=== PATIENT | female | born 1945 | race Caucasian/White ===

== ENCOUNTER 2018-02-18 20:15 | Inpatient (IN) | payer OTHER, MEDICARE ==
--- NOTE | 2018-02-18 20:15 | NUR ---
PT ADMITTED FROM HOME DUE TO SUICIDE IDEATION REFERRED PER DR. BLANCO. PT IS ALERT AND ORIENTED X 3. PT AMBULATES WITHOUT ASSISTANCE. INCONT OG BLADDER AT TIMES. ABLE TO VOICE NEEDS TO STAFF. PT. WEARS GLASSES. CODEWORD IS [facility]. PT IS DNR. HAS ADVANCE DIRECTIVE DAUGHTER SHAMA WILL BRING TOMORROW PER PT. PHARMACY IS [facility]. PCP DR. TAVAREZ. EPISCOPAL IS [facility]. PT IS TYPE 2 DIABETIC. DEL YOUNGER- [phone] DAUGHTER SHAMA NAOMI- POA- [phone].
[2018-02-18] MEDS ORDERED: RANITIDINE HCL150 M1 PO (21:52)
[2018-02-18] MEDS ORDERED: JANUVIA100 MG PO (21:53)
[2018-02-18] MEDS ORDERED: ZOLOFT100 MG PO (21:53)
[2018-02-18] MEDS ORDERED: GLUCOTROL 5 MG T5 MG (22:02)
[2018-02-18] MEDS ORDERED: BAYER CHEWABLE81 MG PO (22:02)
[2018-02-18] MEDS ORDERED: BENADRYL25 MG (22:05)
[2018-02-18] MEDS ORDERED: DEPAKOTE500 MG (22:06)
[2018-02-18] MEDS ORDERED: ZYPREXA2.5 MG (22:07)
[2018-02-18] MEDS ORDERED: TRAZODONE HCL150 MG PO (22:08)
[2018-02-18 22:19] VITALS: BP 157/84
[2018-02-18 23:16] VITALS: BP 157/84
--- NOTE | 2018-02-19 01:30 | NUR ---
PT STATES ANXIETY AND CANT SLEEP. PRN ATIVAN 0.5 MG PO GIVEN FOR ANXIETY
--- NOTE | 2018-02-19 02:24 | NUR ---
RESTING CALMLY IN BED WITH EYES CLOSED AT THIS TIME.
[2018-02-19 07:50] LABS: HEMATOCRIT 44.4 % (36.0-48.0); HEMOGLOBIN 15.1 g/dL (12-16); MCH 31.9 pg (26.0-34.0); MCV 93.9 fL (80.0-100.0); MEAN PLATELET VOLUME 9.9 fL (7.4-10.4); PLATELET COUNT 203 10x3/uL (130-400); RBC 4.73 10x6/uL (4.00-5.40); RDW 13.7 % (11.5-14.5); WBC 10.9 10x3/uL (4.8-10.8)
--- NOTE | 2018-02-19 08:00 | NUR ---
REC'D PT IN HALLWAY WITH PEERS. PT IS ALERT AND ORIENTED X 3. DENIES SUICIDE IDEATIONS AT THIS TIME. PT CALM AND COOPERATIVE WITH ASSESSMENT. PT IS VERY ANXIOUS AT TIMES. PRESCRIBED MEDS PROVIDED. MED COMPLIANT. FALL PRECAUTIONS IN PLACE. WILL COMTINUE TO MONITOR Q 15 MINUTES FOR SAFETY. WILL CPOC.
[2018-02-19 08:22] LABS: ALBUMIN 3.4 g/dL (3.4-5.0); ANION GAP 17.3 mmol/L (8-16); BILIRUBIN - TOTAL 0.37 mg/dL (0.2-1.3); CALCIUM 9.8 mg/dL (8.5-10.1); CARBON DIOXIDE 23.8 mmol/L (21.0-32.0); CHOL - HDL RATIO 3.7 ratio (2.3-4.1); CREATININE - SERUM 0.8 mg/dL (0.6-1.3); LDL-HDL RATIO 2.5 ratio (1.5-3.5); POTASSIUM - SERUM 4.1 mmol/L (3.5-5.1); PROTEIN - SERUM 7.3 g/dL (6.4-8.2); THYROID STIMULATING HORMONE 4.42 uIU/mL (0.36-3.74); VALPROIC ACID (DEPAKOTE) 57.8 ug/mL (50.0-100.0)
[2018-02-19 09:07] VITALS: BP 135/72
[2018-02-19 09:22] LABS: EOSINOPHILS 1 % (0-7); LYMPHOCYTES 39 % (15-50); MONOCYTES 9 % (2-11); NEUTROPHILS 49 % (40-80); PLATELET ESTIMATE NORMAL
[2018-02-19 10:16] VITALS: Wt 76.7 kg
--- NOTE | 2018-02-19 19:56 | NUR ---
RECEIVED IN HALLWAY. WALKING TO HER ROOM AT BEDTIME. CALM AND COOPERATIVE WITH CARE AND ASSESSMENT. NO STATEMENTS MADE OF SELF HARM THIS PM. REDIRECT AND REORIENT NEEDED. RESTING EYES CLOSED AT THIS TIME. CONTINUE PLAN OF CARE
[2018-02-19 23:57] VITALS: BP 130/58
[2018-02-20 07:30] LABS: APPEARANCE HAZY (CLEAR); BILIRUBIN NEGATIVE (NEGATIVE); COLOR YELLOW (YELLOW); GLUCOSE NEGATIVE (NEGATIVE); KETONE NEGATIVE (NEGATIVE); NITRITE NEGATIVE (NEGATIVE); PROTEIN NEGATIVE (NEGATIVE); SPECIFIC GRAVITY 1.015 (1.005-1.020); UROBILINOGEN NORMAL (NORMAL)
[2018-02-20 07:30] LABS: VITAMIN D 25 HYDROXY 17.8 ng/mL (30.0-100.0)
--- NOTE | 2018-02-20 07:30 | NUR ---
REC'D PT IN HALLWAY SITTING IN CHAIR/ ALERT AND ORIENTED X 3. CALM AND COOPERATIVE WITH ASSESSMENT. NO SI NOTED OR VOICED. PRESCRIBED MEDS PROVIDED. MED COMPLIANT. REDIRECT AND REORIENT NEEDED. FALL PRECAUTIONS IN PLACE. WILL CONTINUE TO MONITOR Q 15 MINUTES FOR SAFETY. WILL CPOC.
[2018-02-20 07:31] LABS: BACTERIA FEW /hpf (NONE SEEN); EPITHELIAL CELLS 0-5 /hpf (0-5); MUCUS >1+ /lpf (NONE SEEN); WHITE CELLS - URINE 0-5 /hpf (0-5)
[2018-02-20 08:00] VITALS: BP 147/86
[2018-02-20 08:25] LABS: RAPID PLASMA REAGIN Non Reactive (Non Reactive)
[2018-02-20 11:18] LABS: FOLATE (FOLIC ACID) - SERUM 13.3 ng/mL (>3.0)
--- NOTE | 2018-02-20 14:59 | PSY ---
PATIENT NAME:CONNOR FLANAGAN MEDICAL RECORD: [id number] : 43 LOCATION:NOR[facility] Mauricio1125 ADMISSION DATE: 02/18/18 ACCOUNT: [id number] PSYCHIATRIC EVALUATION DATE OF EVALUATION: 02/19/18 PSYCHIATRIC EVALUATION IDENTIFYING DATA: The patient is 72 years old and she is admitted to the hospital on a voluntary basis. CHIEF COMPLAINT: Suicidal thoughts. HISTORY OF PRESENT ILLNESS: The patient has about a 95-tkly-bmycwaa of bipolar disorder. She now reports to the hospital after being referred by her outpatient psychiatrist. Apparently, she has been significantly impaired and agitated. She, for some reason, has been involved in a major building project at the [employer] she belongs to. Apparently, the project is done by committee and it has not gone well. She is feeling conflict with builder, contractor, her spool hauler, and the other members of the committee. It is her opinion that her is not supportive of her and siding with her in this conflict. She says that she wishes that she could and would actively seek to harm herself if she could. She does not have a plan. She is tearful and endorsing numerous neurovegetative depressive symptoms. PAST MEDICAL HISTORY: Significant for breast cancer, endometrial cancer, gallbladder removal, and diabetes. PAST PSYCHIATRIC HISTORY: Significant for bipolar disorder. This was diagnosed about 15 years ago, around the time she was battling breast cancer. She has been relatively stable since then and has been treated extensively by her outpatient psychiatrist, Dr. Nava. FAMILY HISTORY: Noncontributory. ALLERGIES: LUNESTA. CURRENT MEDICATIONS: Include Januvia, Glucotrol, Zoloft, Pepcid, Desyrel, Zyprexa, and Depakote. SOCIAL HISTORY: The patient has been to the same man for more than 50 years. He apparently works for a gas and [employer] company and travels most of the time. He continues to work even though he is 73 years old. 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 She has 3 children, one of whom is adopted. She has a daughter who lives close to her in [place] and she has regular contact with. She has no history of drug or alcohol abuse, and generally has functioned well both socially and occupationally. MENTAL STATUS EXAMINATION: The patient is awake; alert; and oriented to person, place, time, and situation. Her mood is depressed. Her affect is constricted. She is oriented fully and her appearance is little disorganized. Her eye contact is fair. Thought processes are circumstantial and she has no active hallucinations or delusions. She does endorse suicidal ideation with vague intent and no specific plan she will reveal. She has no homicidal or violent ideations. Her memory, concentration, and abstraction abilities are mildly impaired. ASSETS: Supportive family members. LIABILITIES: Limited insight. DIAGNOSTIC IMPRESSION: AXIS I: Bipolar disorder, depressed. AXIS II: None. AXIS III: Diabetes. AXIS IV: Moderate. AXIS V: Global assessment of functioning is 40. PLAN: At this time, the patient is admitted to the hospital secondary to depressive symptoms with suicidal thoughts. This is in relation to her underlying chronic mental illness. She will be treated with both mood stabilizing and antidepressant medications. Her long-term prognosis is guarded. TRANSINT:[id number] Voice Confirmation ID: [id number] DOCUMENT ID: [id number] ALBERTO LEA MD at 1459 CC: [id number] DICTATION DATE: 02/19/18 1615 LABOR TRAINER: 02/19/18 1651 ADM IN [facility] [address] [place] [address]
--- NOTE | 2018-02-20 17:38 | NUR ---
PT DAUGHTER SHAMA CALLED TO REPORT TO THAT SHE SPOKE WITH REGARDING PT MAKING STATEMENT DURING VISITATION ON SUNDAY " I HAVE A BOOTLE OF PILLS AT HOME, THAT YOU WILL NEVER FIND." DAUGHTER ASKED PT TO LET HER KNOW WHERE THE PILLS ARE LOCATED." " PT STATES I CAN TELL YOU THAT I MAY WANT TO TAKE THEM WHEN I GO HOME." PT DAUGHTER IS CONCERNED IF PT KNOWS SHE TOLD STAFF SHE WILL LOSE HER MOMS TRUST BUT IS VERY CONCERNED BELIEVES HER MOM MAY TAKE PILLS IF NOT FOUND AND PT GOES HOME. THIS NURSE EXPLAINED I WOULD LEAVE A NOTE IN HER CHART AND MAKE SURE DR. LEA IS AWARE.
[2018-02-20 23:37] VITALS: BP 150/80
--- NOTE | 2018-02-21 03:31 | NUR ---
B) REQUESTED TO HAVE HER BLOOD SUGAR TESTED AT BEDTIME, SAME DONE = 117. QUIET, FLAT AFFECT, GUARDED WITH ISSUES, NOT WANTING TO ENGAGE IN CONVERSATION JUST WANTS TO SLEEP. CONTINUES DEPRESSED. SLEEPING WELL. I) MEDICATE ORDERED, ENCOURAGE EXPRESSION OF FEELINGS, ENCOURAGE TO IDENTIFY TRIGGERS TO SUICIDAL THOUGHTS, MAINTAIN SAFETY ON UNIT. R) NO SELF-DISCLOSURES, SULLEN, WITHDRAWN, COMPLIANT WITH MEDICATIONS. P) CONTINUE TO MONITOR PER PLAN OF CARE.
[2018-02-21 07:00] VITALS: BP 158/93
--- NOTE | 2018-02-21 15:55 | PN ---
PATIENT:CONNOR FLANAGAN MEDICAL RECORD: [id number] LOCATION:[facility]VID[facility]ula MauricioJoyce ADMISSION DATE: 02/18/18 PROGRESS NOTE DATE OF SERVICE: 02/20/2018 SUBJECTIVE: The patient's case was discussed with staff. She has no new complaint. OBJECTIVE: The patient denies that she would seek to harm herself. She is resting much better. ASSESSMENT: No change in diagnoses. PLAN: Current medicines and therapies have been reviewed and will be maintained. Long-term prognosis is guarded. TRANSINT:[id number] Voice Confirmation ID: [id number] DOCUMENT ID: [id number] ALBERTO LEA MD at 1555 CC: [id number] DICTATION DATE: 02/20/18 1506 VOCAL PERFORMER: 02/20/18 1722 ADM IN [place] [id number] [place] [address]
[2018-02-21 18:57] VITALS: BP 152/81
--- NOTE | 2018-02-21 20:10 | NUR ---
B) PATIENT ASKED TO MAKE PHONE CALL TO SPEAK TO HER DAUGHTER ABOUT THE OLD RX BOTTLE OF OXYCODONE SHE HAD HIDDEN. STATES SHE IS NOW WILLING TO TELL HER DAUGHTER WHERE THIS BOTTLE IS. ADMITS TO STILL FEELING DEPRESSED BUT DENIES SUICIDAL IDEATION AT THIS TIME. STAYS TO HER SELF, NO CONVERSING WITH PEERS. ALLOWED TO USE TELEPHONE. I) MEDICATE PER ORDERS, ASSESS FOR SUICIDE RISK AND INTENT, MONITOR ON SUICIDE PRECAUTIONS, MAINTAIN SAFETY OF UNIT. OFFER 1:1 TO VERBALIZE FEELINGS, RECOGNIZE TRIGGERS AND WORK ON DEVELOPING COPING SKILLS TO INCREASE SENSE OF SELF WORTH AND DESIRE TO LIVE. R) COMPLIANT WITH MEDICATIONS, DENIES SUICIDE IDEATION AT THIS TIME. ORIENTED X 4, QUIET, SULLEN AND WITHDRAWN. P) MONITOR PER PLAN OF CARE.
--- NOTE | 2018-02-21 22:10 | NUR ---
SHAMA, PATIENT'S DAUGHTER TELEPHONED UNIT. STATES SHE HAS FOUND THE BOTTLE OF OXYCODONE PILLS.
--- NOTE | 2018-02-22 08:00 | NUR ---
Late Entry: The patient had been ambulating in the hallway. She is alert and oriented x3, she is here for depression and SI, with a hx of bipolar. At this time she sat in a chair in the hallway and she fell off of the chair onto the floor. Sat the patient up in the chair and she said "I don't feel so well."
--- NOTE | 2018-02-22 08:05 | NUR ---
Late entry: Vital signs taken blood pressure is 69/56, assessed her eyes and they are fixed. Assessed her hand grasps and she is able to grab, but there is no strength. At 0807 did a manual blood pressure 80/60, called for a rapid response. 0810 rapid response team is here bp 90/56. From the fall there is a noted bruise to her left eyebrow and left cheek. The call is made to take the patient to CT for a head and spine.
--- NOTE | 2018-02-22 08:30 | NUR ---
Late entry: Called the patient's to let him know his fell and was sent to CT, he said "Ok, I will be right there." Text Dr. Schmidt and he text back asking to let him know how everything goes.
--- NOTE | 2018-02-22 08:40 | NUR ---
Late entry: The patient has been taken to CT and from CT she has been admitted to ICU, she is now discharged from [facility], she left via [facility] chair.
--- NOTE | 2018-02-22 16:05 | NUR ---
LATE ENTRY: PT FELL OUT OF HER CHAIR THIS MORNING. PT STATED THAT SHE DID NOT FEEL WELL. VITAL SIGNS TAKEN AND PT'S BLOOD PRESSURE WAS LOW. A MANUAL BLOOD PRESSURE WAS DONE BUT NO CHANGE. DR. JOHNSON NOTIFIED. PT TAKEN TO CT FOR IMAGING. ALL IMAGING WNL. FAMILY NOTIFIED OF FALL. PRIOR TO CT PT WAS VERY LETHARGIC AND UNABLE TO COMPLETE NEURO ASSESSMENT. [facility]ON[facility] CALLED. SEE CHART FOR DOCUMENTATION. PT DISCHARGED TO ICU FOR FURTHER EVALUATION. FAMILY NOTIFIED. DR. LEA CALLED AND INFORMED OF DISCHARGE.
--- NOTE | 2018-02-22 16:27 | PN ---
PATIENT:CONNOR FLANAGAN MEDICAL RECORD: [id number] LOCATION:[facility]uyita[facility]UBEN[facility]ula Mauricio112 ADMISSION DATE: 02/18/18 PROGRESS NOTE DATE OF SERVICE: 02/21/2018 SUBJECTIVE: The patient's case was discussed with staff. She has no new complaint. OBJECTIVE: The patient denies intent to harm herself or others. She generally is tolerating her medicines well. She is sleeping better, but continues to believe that her situation is fairly hopeless with regards to the problems she is having with the contractor. ASSESSMENT: No change in diagnoses. PLAN: I am going to increase her Zoloft slightly. She will be monitored for clinical changes associated with its use. Her long-term prognosis is guarded. TRANSINT:[id number] Voice Confirmation ID: [id number] DOCUMENT ID: [id number] ALBERTO LEA MD at 1627 CC: [id number] DICTATION DATE: 02/21/18 1615 OTR REFRIGERATED CDL TRUCK DRIVER: 02/21/18 2212 DIS IN 02/22/18 [place] [address] [place] [address]
== END 2018-02-22 08:40 | disposition short-term general hospital (02) | DRG 885 ==
LOC: D.PSYCH 20:15
PROVIDERS: ADMIT Psychiatry & Neurology Psychiatry
DX: F31.30 Bipolar disorder, current episode depressed, mild or moderate severity, unspecified (principal); R45.851 Suicidal ideations; K21.9 Gastro-esophageal reflux disease without esophagitis; E11.9 Type 2 diabetes mellitus without complications; E66.3 Overweight; I10 Essential (primary) hypertension; E55.9 Vitamin D deficiency, unspecified; W07.XXXA Fall from chair, initial encounter; S09.90XA Unspecified injury of head, initial encounter

== ENCOUNTER 2018-02-22 10:16 | Inpatient (IN) | payer OTHER, MEDICARE ==
[~2018-02-22] VITALS: Ht 160 cm; Wt 82.0 kg
[2018-02-22] VITALS (18 sets, daily range): BP systolic 63–135; BP diastolic 27–93
[~2018-02-22 10:16] MED LIST: BAYER CHEWABLE81 MG PO; BENADRYL25 MG; DEPAKOTE500 MG; GLUCOTROL 5 MG T5 MG; JANUVIA100 MG PO; RANITIDINE HCL150 M1 PO; TRAZODONE HCL150 MG PO; ZOLOFT100 MG PO; ZYPREXA2.5 MG
--- NOTE | 2018-02-22 14:53 | NUR ---
0850 ARRIVED VIA BED FROM [facility] ADMIT AND ASSESSMENT COMPLETE GOOD HISTORIAN
--- NOTE | 2018-02-22 14:58 | NUR ---
1045 SPOUSE AT BEDSIDE EMOTIONAL SUPPORT PROVIDED
--- NOTE | 2018-02-22 14:58 | NUR ---
1200 RN FROM [facility] AT BEDSIDE GIVING DESCRIPTION OF WHAT HAPPENED THIS AM. PT HAD REPORTED DIZZYNESS AND HAD A FALL ON THEIR UNIT [facility] CALLED AND TRANSPORTED PATIENT TO ICU 9620
[2018-02-22 17:39] LABS: ALBUMIN 3.5 g/dL (3.4-5.0); ANION GAP 15.6 mmol/L (8-16); BILIRUBIN - TOTAL 0.31 mg/dL (0.2-1.3); CALCIUM 9.4 mg/dL (8.5-10.1); CARBON DIOXIDE 25.8 mmol/L (21.0-32.0); CREATININE - SERUM 1.1 mg/dL (0.6-1.3); POTASSIUM - SERUM 4.4 mmol/L (3.5-5.1); PROTEIN - SERUM 6.8 g/dL (6.4-8.2)
[2018-02-22 17:42] LABS: BASOPHILS 0.3 % (0-2); EOSINOPHILS 0.5 % (0-7); HEMOGLOBIN 14.9 g/dL (12-16); IMMATURE GRANULOCYTES 0.8 % (0-5); LYMPHOCYTES 42.3 % (15-50); MCHC 33.1 g/dL (31.0-37.0); MCV 96.6 fL (80.0-100.0); MEAN PLATELET VOLUME 10.4 fL (7.4-10.4); MONOCYTES 9.5 % (2-11); NEUTROPHILS 46.6 % (40-80); PLATELET COUNT 208 10x3/uL (130-400); RBC 4.66 10x6/uL (4.00-5.40); RDW 13.6 % (11.5-14.5); WBC 15.3 10x3/uL (4.8-10.8)
[2018-02-22 18:32] LABS: CKMB 2.8 U/L (0.0-3.6); CREATINE KINASE 161 UL (21-215)
[2018-02-22 18:35] LABS: TROPONIN-I < 0.017 ng/mL (0.000-0.060)
--- NOTE | 2018-02-22 19:00 | NUR ---
SHIFT ASSESSMENT COMPLETE. BP 63/27 MAP 43, 500 CC NS BOLUS INFUSING. NEW ORDERS RECIEVED VIA DAY SHIFT RN. REPOSITIONED. AT BEDSIDE. RR EVEN AND UNLABORED, HR 105 SINUS TACH. SCDS ON AND FUNCTIONING. SHE STATES THAT SHE IS IN SOME PAIN AT THIS TIME, BUT DOES NOT WANT ANY MEDICATION. HEAT PACK ON NECK. NO FURTHER NEEDS AT THIS TIME. WILL CONT TO MONITOR CLOSELY.
--- NOTE | 2018-02-22 21:10 | NUR ---
FSBS 96. NO INSULIN ADMINISTERED. AT BEDSIDE. PT RESTING PEACEFULLY. BP REMAINS ON THE LOWER RANGE OF NORMAL. WILL CONT TO MONITOR CLOSELY.
--- NOTE | 2018-02-22 21:49 | NUR ---
1530 IV STARTED TO LEFT HAND WITH 20G NEEDLE NS 500ML BOLUS STARTED
--- NOTE | 2018-02-22 21:49 | NUR ---
1400 [facility] 99
--- NOTE | 2018-02-22 21:50 | NUR ---
5103 CHEMISTRY GLUCOSE 133 DILAUDID 1MG GIVEN IV PER ORDER
--- NOTE | 2018-02-22 21:52 | NUR ---
1705 PATIENT WITH CYANOSIS O2 SAT DROPPING BEGAN BAGGING PATIENT NARCAN GIVEN IV PATIENT BAGAN WAKING UP PLACED ON NC 3L FAMILY RERMAINS AT BEDSIDE TURNED PT TO SIDE BECAUSE C/O NAUSEA. PT HAD NO EMESIS NOTED
--- NOTE | 2018-02-22 21:56 | NUR ---
1800 COOL CLOTH APPLIED TO FOREHEAD FOR COMFORT WARM PACK APPLIED TO BACK OF NECK FOR C/O OF PAIN PAISTEPHANIE WENT TO SLEEP WITH DAUGHTER AT BEDSIDE
--- NOTE | 2018-02-22 23:00 | NUR ---
REASSESSMENT COMPLETE. COMPLETE LINEN CHANGE. DAUGHTER AT BEDSIDE. PT TOLERATED WELL, APPROX 400 ML CLEAR YELLOW URINE NOTED. VSS. REPOSITIONED FOR COMFORT. WILL CONT WITH POC.
[2018-02-23] VITALS (24 sets, daily range): BP systolic 87–164; BP diastolic 47–92
--- NOTE | 2018-02-23 | NUR ---
FSBS 117. WILL CONT TO MONITOR CLOSELY.
--- NOTE | 2018-02-23 01:00 | NUR ---
PT RESTING PEACEFULLY WITH NO SIGNS OF ACUTE DISTRESS NOTED. VSS. WILL CONT WITH POC.
--- NOTE | 2018-02-23 03:00 | NUR ---
REASSESSMENT COMPLETE. PARTIAL LINEN CHANGE PROVIDED. NO CHANGES IN PT CONDITION. VSS. REPOSITIONED FOR COMFORT.
--- NOTE | 2018-02-23 04:30 | NUR ---
PT STATES THAT SHE HAS 8/10 PAIN AND IS REQUESTING TYLENOL. MED ADMINISTERED. SNACK PROVIDED. WILL CONT TO MONITIOR.
--- NOTE | 2018-02-23 05:00 | NUR ---
PT RESTING PEACEFULLY WITH NO S/S OF PAIN OR DISCOMFORT. VSS.
[2018-02-23 10:46] LABS: BASOPHILS 0.2 % (0-2); EOSINOPHILS 0.3 % (0-7); HEMOGLOBIN 12.3 g/dL (12-16); IMMATURE GRANULOCYTES 0.6 % (0-5); LYMPHOCYTES 37.6 % (15-50); MCH 31.5 pg (26.0-34.0); MCHC 32.4 g/dL (31.0-37.0); MCV 97.2 fL (80.0-100.0); MEAN PLATELET VOLUME 9.5 fL (7.4-10.4); MONOCYTES 12.1 % (2-11); NEUTROPHILS 49.2 % (40-80); PLATELET COUNT 169 10x3/uL (130-400); RBC 3.91 10x6/uL (4.00-5.40); RDW 14.1 % (11.5-14.5)
[2018-02-23 10:56] LABS: WBC 10.7 10x3/uL (4.8-10.8)
[2018-02-23 12:22] LABS: ANION GAP 14.4 mmol/L (8-16); BILIRUBIN - TOTAL 0.39 mg/dL (0.2-1.3); CALCIUM 7.9 mg/dL (8.5-10.1); CARBON DIOXIDE 19.9 mmol/L (21.0-32.0); CREATININE - SERUM 1.3 mg/dL (0.6-1.3); POTASSIUM - SERUM 4.3 mmol/L (3.5-5.1); PROTEIN - SERUM 5.8 g/dL (6.4-8.2)
[2018-02-23 12:23] LABS: ALBUMIN 2.4 g/dL (3.4-5.0)
--- NOTE | 2018-02-23 12:54 | NUR ---
PLACED PT ON BED [place] - CPOC
--- NOTE | 2018-02-23 13:00 | NUR ---
REMOVED BED [place] - PT OUT PUT 250 YELLOW URINE - INFORMED PT THE NEED TO PLACE [place]OS - PT VERBALIZED UNDERSTANDING CPOC
--- NOTE | 2018-02-23 13:30 | NUR ---
ADMINISTERED CEVALLOS PER ORDER - CPOC
--- NOTE | 2018-02-23 15:00 | NUR ---
ASSESSMENT COMPLETE - PATIENT ASKED FOR PRUNE JUICE FOR CONSTIPATION - CPOC
--- NOTE | 2018-02-23 18:00 | NUR ---
DR. JOHNSON AT BEDSIDE FOR ASSESMENT - ORDRED TOPICAL PAIN OINTMENT - CPOC
--- NOTE | 2018-02-23 19:09 | NUR ---
PLACED PT ON BED [place] - PT HAS LARGE SEMIFORMED B.M. - PT RESTING IN BED VVS CPOC
--- NOTE | 2018-02-23 19:30 | NUR ---
SHIFT ASSESSMENT COMPLETE, PER NURSING FLOWSHEET, VSS, NO NEEDS VOICED OR NOTED AT THIS TIME
--- NOTE | 2018-02-23 21:00 | NUR ---
PATIENT REPOSITIONED, DAUGHTER AND AT BEDSIDE, UPDATE GIVEN, QUESTIONS ANSWERED
--- NOTE | 2018-02-23 23:00 | NUR ---
RE-ASSESSMENT COMPLETE PER NURSING FLOWSHEET, PATIENT REPOSITIONED, DAUGHTER GOING HOME TONIGHT, PATIENT ORIENTATION HAS IMPROVED. WILL CONTINUE TO MONITOR
[2018-02-24] VITALS (24 sets, daily range): BP systolic 108–182; BP diastolic 51–95
--- NOTE | 2018-02-24 01:00 | NUR ---
PATIENT REPOSITIONED, CEVALLOS CARE PROVIDED, EASILY FALLS BACK TO SLEEP, CONTINUE POC
--- NOTE | 2018-02-24 03:00 | NUR ---
RE-ASSESSMENT COMPLETE, PER NURSING FLOWSHEET. PATIENT REPOSITIONED, C/L IN REACH
--- NOTE | 2018-02-24 05:00 | NUR ---
PATIENT SLEEPING, VSS, NO DISTRESS NOTED, WILL CONTINUE TO MONITOR
[2018-02-24 06:54] LABS: ALBUMIN 2.6 g/dL (3.4-5.0); BILIRUBIN - TOTAL 0.12 mg/dL (0.2-1.3); CALCIUM 8.8 mg/dL (8.5-10.1); CARBON DIOXIDE 24.7 mmol/L (21.0-32.0); PROTEIN - SERUM 5.8 g/dL (6.4-8.2)
[2018-02-24 06:56] LABS: ANION GAP 13.3 mmol/L (8-16); CREATININE - SERUM 0.9 mg/dL (0.6-1.3)
--- NOTE | 2018-02-24 08:08 | NUR ---
0700 AWAKW ALERT ANSWERS QUESTIONS APPROPRIATLY FOLLOWS INSTRUCTION
--- NOTE | 2018-02-24 09:38 | NUR ---
0900 CONSUMED 80% BREAKFAST DENIES NAUSEA
--- NOTE | 2018-02-24 12:26 | NUR ---
1225 IV LEAKING TIGHTENED CONNECTOR REMAINS PATENT
--- NOTE | 2018-02-24 19:30 | NUR ---
REPORT RECEIVED, SHIFT ASSESSMENT COMPLETED PER FLOW SHEET, PT AAOx4 IN NO DISTRESS, DENIES PAIN AT THIS TIME, CEVALLOS PATENT TO GRAVITY, ABLE TO REPOSITION SELF, MOVES ALL EXTREMITIES WITH PURPOSE, VSS, WILL CONTINUE TO ASSESS
--- NOTE | 2018-02-24 20:00 | NUR ---
REMOVED IV FROM LT HAND, CATH TIP INTACT, NO S/S OF DISTRESS NOTED, PT FAMILY AT BEDSIDE, VSS, WILL CONTINUE TO ASSESS
--- NOTE | 2018-02-24 20:05 | NUR ---
1415 RESTING QUIETLY FAMILY MEMBERS AT BEDSIDE
--- NOTE | 2018-02-24 20:05 | NUR ---
1600 ACCU CHECK 143 NO INSULIN GIVEN PER SLIDING SCALE
--- NOTE | 2018-02-24 20:06 | NUR ---
1515 DR YING AT BEDSIDE WITH UPDATED FOR PATIENT AND FAMILY.
--- NOTE | 2018-02-24 20:07 | NUR ---
1700 POOR APPETITE REFUSES TO EAT DINNER
--- NOTE | 2018-02-24 23:00 | NUR ---
REASSESSMENT COMPLETED PER FLOW SHEET, PT RESTING IN BED COMFORTABLY, DENIES PAIN AT THIS TIME, VSS, ASSISTED PT TO REPOSITION, WILL CONTINUE TO ASSESS
[2018-02-25] VITALS (15 sets, daily range): BP systolic 131–173; BP diastolic 58–84; Ht 160 cm; Wt 82.0 kg
--- NOTE | 2018-02-25 03:00 | NUR ---
REASSESSMENT COMPLETE, NO ACUTE CHANGE, PT DENIES NEEDS OR PAIN, AAOx4, VSS, WILL CONTINUE TO ASSESS
--- NOTE | 2018-02-25 04:00 | NUR ---
TOOK CONSULT PAPERWORK TO CARE FOR PHYSICIAN CONSULT.
--- NOTE | 2018-02-25 07:29 | NUR ---
REPORT RECEIVED. ASSESSMENT COMPLETE PER FLOW SHEET. VSS. PT DENIES NEEDS. WILL CONTINUE TO MONITOR
--- NOTE | 2018-02-25 09:20 | NUR ---
PT ATE 100% BREAKFAST ASSISTED TO BEDSIDE COMMODE. LARGE BM NOTED
--- NOTE | 2018-02-25 11:20 | NUR ---
REASSESSMENT COMPLETE PER FLOW SHEET. VSS. NO NEW CHANGES WILL CONTINUE TO MONITOR
--- NOTE | 2018-02-25 11:48 | NUR ---
FAXED CONSULT TO ALF FOR DR LEA CALLED AND INFORMEDD STAFF
--- NOTE | 2018-02-25 14:15 | NUR ---
FAMILY AT BEDSIDE. GIVEN UDPATE.
--- NOTE | 2018-02-25 15:34 | NUR ---
REASSESSMENT COMPLETE PER FLOW SHEET. VSS. NO NEW CHANGES. PT RESTING COMFORTABLY WILL CONTINUE TO MONITOR
--- NOTE | 2018-02-25 16:30 | NUR ---
DR. LEA AT BEDSIDE, SPOKE WITH PT AND FAMILY, OK TO DISCHARGE HOME
--- NOTE | 2018-02-25 16:45 | NUR ---
UPDATE CALLED TO [facility] TO DISCHARGE PT HOME
--- NOTE | 2018-02-25 17:02 | MORECARE ---
CASE MANAGEMENT DISCHARGE SUMMARY PATIENT: CONNOR FLANAGAN UNIT: [id number] ADM DATE: 02/22/18 AGE: 72 : 44 SEX: F ROOM/BED: D.2310 AUTHOR: RAF ARIAS PHYSICIAN: REFERRING PHYSICIAN: ANTOINETTE JOHNSON MD DATE OF SERVICE: 02/25/18 Discharge Plan Patient Name: CONNOR FLANAGAN [facility] [facility] 1945 Planned Disposition: Home Anticipated Discharge Date: Discharge Date: Expected LOS: Initial Reviewer: [email or web address] Initial Review Date: 02/25/2018 Generated: 02/25/18 6:02 pm Patient Name: CONNOR FLANAGAN Page [id number] at 1702 All edits/amendments must be made on the electronic document DICTATION DATE: 02/25/181701 SENIOR NATIONAL ACCOUNT MANAGER: MICHAEL 02/25/181701 RPT#: [id number] DC DATE: STATUS: ADM IN [facility] [address] [place] [address] END OF REPORT
--- NOTE | 2018-02-25 17:12 | MORECARE ---
CASE MANAGEMENT DISCHARGE SUMMARY PATIENT: CONNOR MACK UNIT: [id number] ADM DATE: 02/22/18 AGE: 72 : 44 SEX: F ROOM/BED: D.2310 AUTHOR: JUANA,DOC PHYSICIAN: REFERRING PHYSICIAN: ANTOINETTE JOHNSON MD DATE OF SERVICE: 02/25/18 Discharge Plan Patient Name: CONNOR MACK Facility: [facility]:[place] : 1945 Planned Disposition: Home Anticipated Discharge Date: Discharge Date: Expected LOS: Initial Reviewer: [email or web address] Initial Review Date: 02/25/2018 Generated: 02/25/18 6:11 pm Comments DCP- Discharge Planning Updated by [email or web address]: Lida Pineda on 02/25/18 4:[address] Patient Name: CONNOR MACK Admission Status: Elective Accout number: [id number] Admission Date: 02-22-2018 : 1945 Admission Diagnosis:HYPOTENSION, UNSPECIFIED Attending: ANTOINETTE JOHNSON Current LOS: 3 Anticipated DC Date: Planned Disposition: Home Primary Insurance: [facility] PPO Discharge Planning Comments: CM met with patient and family at bedside. Patient plans to return to her home with her family at discharge. Patient denies any discharge needs at this time. CM will continue to follow and assist as needed with discharge planning / needs Glove Parts Inspector: Lida Pineda DCPIA - Discharge Planning Initial Assessment Updated by [email or web address]: Lida Pineda on 02/25/18 5:04 pm * Is the patient Alert and Oriented? Yes * How many steps to enter\exit or inside your home? * PCP Dr Kennedy Escalante * Pharmacy [facility] [place] * Preadmission Environment Home with Family * ADLs Independent * Equipment None * List name and contact numbers for known caregivers / representatives who currently or will assist patient after discharge: Yovani Mack - spouse- [phone] Janice Matias - [phone] * Verbal permission to speak to the caregivers and representatives has been obtained from the patient. Yes * Community resources currently utilized None * Additional services required to return to the preadmission environment? No * Can the patient safely return to the preadmission environment? Yes * Has this patient been hospitalized within the prior 30 days at any hospital? No Last DP export: 02/25/18 4:02 p Patient Name: CONNOR MACK Page [id number] at 1712 All edits/amendments must be made on the electronic document DICTATION DATE: 02/25/181710 DISPENSING LEAD: MICHAEL 02/25/181710 RPT#: [id number] DC DATE: STATUS: ADM IN [facility] [address] [place] [address] END OF REPORT
--- NOTE | 2018-02-25 17:20 | NUR ---
PT DC'D AT THIS TIME VIA WHEELCHAIR, FAMILY AT BEDSIDE,
--- NOTE | 2018-02-26 11:31 | MORECARE ---
CASE MANAGEMENT DISCHARGE SUMMARY PATIENT: CONNOR MACK UNIT: [id number] ADM DATE: 02/22/18 AGE: 72 : 44 SEX: F ROOM/BED: D.2310 AUTHOR: JUANA,DOC PHYSICIAN: REFERRING PHYSICIAN: ANTOINETTE JOHNSON MD DATE OF SERVICE: 02/26/18 Discharge Plan Patient Name: CONNOR MACK Facility: [facility]:[place] : 1945 Planned Disposition: Home Anticipated Discharge Date: Discharge Date: 02/25/2018 Expected LOS: Initial Reviewer: [email or web address] Initial Review Date: 02/25/2018 Generated: 02/26/18 12:30 pm Comments DCP- Discharge Planning Updated by [email or web address]: Lida Pineda on 02/25/18 4:[address] Patient Name: CONNOR MACK Admission Status: Elective Accout number: [id number] Admission Date: 02-22-2018 : 1945 Admission Diagnosis:HYPOTENSION, UNSPECIFIED Attending: ANTOINETTE JOHNSON Current LOS: 3 Anticipated DC Date: Planned Disposition: Home Primary Insurance: [facility] PPO Discharge Planning Comments: CM met with patient and family at bedside. Patient plans to return to her home with her family at discharge. Patient denies any discharge needs at this time. CM will continue to follow and assist as needed with discharge planning / needs Go Go Dancer: Lida Pineda DCPIA - Discharge Planning Initial Assessment Updated by [email or web address]: Lida Pineda on 02/25/18 5:04 pm * Is the patient Alert and Oriented? Yes * How many steps to enter\exit or inside your home? * PCP Dr Kennedy Escalante * Pharmacy [facility] [place] * Preadmission Environment Home with Family * ADLs Independent * Equipment None * List name and contact numbers for known caregivers / representatives who currently or will assist patient after discharge: Yovani Mack - spouse- [phone] Janice Matias - [phone] * Verbal permission to speak to the caregivers and representatives has been obtained from the patient. Yes * Community resources currently utilized None * Additional services required to return to the preadmission environment? No * Can the patient safely return to the preadmission environment? Yes * Has this patient been hospitalized within the prior 30 days at any hospital? No Last DP export: 02/25/18 4:12 p Patient Name: CONNOR MACK Page [phone] at 1131 All edits/amendments must be made on the electronic document DICTATION DATE: 02/26/18 113 SENIOR PRODUCT CONSULTANT: MICHAEL 02/26/18 1130 RPT#: [id number] DC DATE:02/25/18 STATUS: DIS IN [facility] [address] [place] [address] END OF REPORT
--- NOTE | 2018-02-26 15:01 | EC ---
PATIENT:CONNOR FLANAGAN DATE OF SERVICE: 02/22/18 SEX: F MEDICAL RECORD: [id number] DATE OF : 43 LOCATION:[facility] AGE OF PATIENT: 72 ADMISSION DATE: 02/22/18 REFERRING PHYSICIAN: INTERPRETING PHYSICIAN: RODOLFO MOJICA MD ECHOCARDIOGRAM REPORT ECHO CHARGES 4 ECHO COMPLETE Date: 02/23/18 CLINICAL DIAGNOSIS: SYNCOPE ECHOCARDIOGRAPHIC MEASUREMENTS (adult normal given) AC root (d.<3.7cm) 2.5 cm LV Septum d (<1.2 cm> 1.1 cm Valve Excursion 1.4 cm LV Septum (systole) 1.6 cm Left Atria (s.<4.0cm> 3.5 cm LVPW d(<1.2cm) 1.2 cm RV (d.<2.3cm) 1.7 cm LVPW (sytole) 1.6 cm LV diastole(<5.6CM) 3.4 cm MV E-F(>70mm/sec) cm LV systole 1.3 cm LVOT Diameter 1.4 cm MV exc.(>10mm) cm Est.ejection fraction (50-75%) % DOPPLER: LVIT cm/sec A 138 cm/sec E 113 cm/sec LA cm/sec RVSP 37.1 mmHg LVOT 121 cm/sec AOP1/2T m/s Asc. Ao 180 cm/sec RVOT 92.0 cm/sec RA cm/sec PA 136 cm/sec AV Gradient Peak 13.0 mmHg AV Mean 5.8 mmHg AV Area 1.1 cm MV Gradient Peak 8.0 mmHg MV Mean 3.2 mmHg MV Area cm COMMENTS: Level Vial Grinder: 1 NEERU KWONGOE Design Supervisor: 3 Dr. Salmeron TAPE# PACS Pericardial Effusion N DATE OF SERVICE: Adequate 2-D Echo, Color Flow and Spectral Doppler, and M-mode LVH present. LV internal dimensions are normal. Wall motion is normal. EF is greater than 55%. Aortic valve is tricuspid, no stenosis without Doppler interrogation. Left atrium normal at 3.5 cm. Mitral valve shows no prolapse. Trace MR. Right-sided chambers were normal. Trace TR. TRANSINT:[id number] Voice Confirmation ID: [id number] DOCUMENT ID: [id number] ECHOCARDIOGRAM REPORT [id number] CONNOR FLANAGAN RODOLFO MOJICA MD at 1501 CC: [id number] DICTATION DATE: 02/23/18 184 MANNEQUIN MOLD MAKER: 02/24/189 DIS IN 02/25/18 [id number] [place] [address]
--- NOTE | 2018-02-26 15:11 | CN ---
PATIENT NAME:CONNOR FLANAGAN MEDICAL RECORD: [id number] : 43 LOCATION:[id number] ADMIT DATE: 02/22/18 ACCOUNT: [id number] CONSULTING PHYSICIAN: ALBERTO LEA MD REFERRING PHYSICIAN: ANTOINETTE JOHNSON MD DATE OF CONSULTATION: 02/25/2018 Psychiatric Consultation IDENTIFYING DATA: The patient is 72 years old and known to me from previous clinical contact. CHIEF COMPLAINT: None. HISTORY OF PRESENT ILLNESS: The patient was admitted to the hospital several days ago because of suicidal thoughts. She was given lisinopril for an elevated blood pressure and became hypotensive, fell and hit her head and neck. She subsequently was transferred to the intensive care unit where she was evaluated. She had no acute injury from the fall. She now tells me she is no longer having thoughts of wanting to harm herself or others and indeed the day she had fallen she was scheduled for discharge the following day. She is present in the room with her and daughter. She is interviewed in front of them. They add information and they do not contradict anything that she says to me. Both feel very comfortable that she is not acutely dangerous. The patient would like to be released from the hospital when medically stable and does not want to return to the behavioral unit. The and daughter are in full agreement with this. MENTAL STATUS EXAMINATION: The patient is awake, alert, and oriented to person, place, time, and situation. Her mood is depressed. Her affect is appropriate. Thought processes are goal directed. Memory, concentration, and abstraction abilities are intact. She denies any active intent to harm herself or others as well as any overt psychotic symptoms. ASSESSMENT: Bipolar disorder, depressed. PLAN: The patient can be discharged from home from the intensive care unit if medically stable. She has a followup appointment with her outpatient psychiatrist and has an outpatient appointment for individual psychotherapy. TRANSINT:[id number] Voice Confirmation ID: [id number] DOCUMENT ID: [id number] ALBERTO LEA MD at 1511 CC: [id number] DICTATION DATE: 02/25/181751 STRATEGIC DEBRIEFING SPECIALIST: 02/25/18 2215 DIS IN 02/25/18 [place] [address]
== END 2018-02-25 17:21 | disposition home or self-care (01) | DRG 312 ==
LOC: D.ICU 10:16
PROVIDERS: ADMIT Family Medicine
DX: I95.2 Hypotension due to drugs (principal); R40.2123 Coma scale, eyes open, to pain, at hospital admission; R40.2223 Coma scale, best verbal response, incomprehensible words, at hospital admission; R55 Syncope and collapse; E11.9 Type 2 diabetes mellitus without complications; E78.5 Hyperlipidemia, unspecified; G47.30 Sleep apnea, unspecified; K21.9 Gastro-esophageal reflux disease without esophagitis; F31.9 Bipolar disorder, unspecified; E55.9 Vitamin D deficiency, unspecified; Z85.3 Personal history of malignant neoplasm of breast; Z85.42 Personal history of malignant neoplasm of other parts of uterus; R51 Headache; W19.XXXA Unspecified fall, initial encounter; I10 Essential (primary) hypertension; E66.9 Obesity, unspecified; R40.2353 Coma scale, best motor response, localizes pain, at hospital admission